=== PATIENT | female | born 1980 | race Caucasian/White ===

== ENCOUNTER 2016-11-17 17:39 | Emergency (ER) | payer MEDICARE, MEDICAID ==
--- NOTE | 2016-11-17 18:08 | Emergency Department Record ---
History of Present Illness - General Chief complaint: ENT Stated complaint: EAR AND NECK PAIN Time Seen by Provider: 11/17/16 18:02 Source: Patient Mode of Arrival: Ambulatory Limitations: No limitations - History of Present Illness Initial comments: 36 yo female presents to ED with a CC of right ear pain for the past 2-3 days ( wears hearing aid in that ear) and worsening of her "disc herniation" in arcelia neck that has been present for approximately 3 months. Patient reports that she has been taking Tylenol at home for her pain symptoms, but not helping much. Patient denies fevers, chills, UE weakness, or drainage from her right ear. MD complaint: Ear pain, Other (neck pain) Onset/Timin -: Month(s) Location: R ear Severity scale (1-10): 10 Quality: Sharp Consistency: Constant Improves with: None Worsens with: Movement - Related Data Home Medications Medication Instructions Recorded Confirmed Last Taken Clonazepam [Klonopin] 0.5 mg PO ASDIR 10/21/16 11/17/16 11/17/16 Paliperidone Palmitate [Invega 117 mg IM ASDIR 10/21/16 11/17/16 11/17/16 Sustenna] Temazepam [Restoril] 30 mg PO QHS 10/21/16 11/17/16 11/17/16 Previous Rx's Medication Instructions Recorded Naproxen [Naprosyn] 500 mg PO Q12H #20 tab. 10/21/16 Diazepam [Valium] 5 mg PO Q8H #15 tab 11/17/16 Ibuprofen [Motrin 600Mg] 600 mg PO Q6H #30 tablet 11/17/16 Allergies Allergy/AdvReac Type Severity Reaction Status Date / Time Penicillins Allergy HIVES Verified 11/17/16 17:51 Travel Screening - Travel/Exposure Within Last 30 Days Have you traveled within the last 30 days?: No - Travel/Exposure Within Last Year Have you traveled outside the [place] in the last year?: No - Additonal Travel Details Have you been exposed to anyone with a communicable illness?: No - Travel Symptoms Symptom Screening: None Review of Systems Constitutional: Denies: Chills, Fever, Malaise, Night sweats Eyes: Denies: Eye discharge, Eye pain ENT: Reports: Ear pain. Denies: Congestion, Epistaxis Respiratory: Denies: Cough, Dyspnea Cardiovascular: Denies: Chest pain, Dyspnea on exertion Endocrine: Denies: Fatigue, Heat or cold intolerance Gastrointestinal: Denies: Abdominal pain, Nausea, Vomiting Musculoskeletal: Reports: Neck pain. Denies: Arthralgia, Back pain, Gout Skin: Denies: Bruising, Change in color, Change in hair/nails Neurological: Denies: Abnormal gait, Confusion, Headache, Paresthesias, Tingling , Weakness Psychiatric: Denies: Anxiety Hematological/Lymphatic: Denies: Anemia, Blood Clots Past Medical History - SOCIAL HISTORY Smoking Status: Never smoker Alcohol Use: None Drug Use: None - RESPIRATORY Hx Respiratory Disorders: No - CARDIOVASCULAR Hx Cardio Disorders: No - NEURO Hx Neuro Disorders: No - GI Hx GI Disorders: No - Hx Genitourinary Disorders: No - ENDOCRINE Hx Endocrine Disorders: No - MUSCULOSKELETAL Hx Musculoskeletal Disorders: No - PSYCH Hx Psych Problems: Yes Hx Anxiety: Yes Hx Depression: Yes Comment:: schitzophrenia - HEMATOLOGY/ONCOLOGY Hx Hematology/Oncology Disorders: No Family Medical History Any Significant Family History?: No Physical Exam - General General Appearance: Alert, Oriented x3, Cooperative, No acute distress Limitations: No limitations - Head Head exam: Atraumatic, Normocephalic, Normal inspection Head exam detail: negative: Abrasion, Contusion, Robertson's sign, General tenderness, Hematoma, Laceration - Eye Eye exam: Normal appearance. negative: Conjunctival injection, Periorbital swelling, Periorbital tenderness, Scleral icterus - ENT Ear exam: Other (TMs appear clear bilaterally). negative: Auricular hematoma, Auricular trauma, External canal tenderness Nasal Exam: negative: Active bleeding, Discharge, Dried blood, Foreign body, Sinus tenderness Mouth exam: negative: Drooling, Laceration, Muffled voice, Tongue elevation - Neck Neck exam: Normal inspection, Full ROM. negative: Meningismus, Tenderness - Respiratory Respiratory exam: Normal lung sounds bilaterally. negative: Respiratory distress, Rhonchi, Stridor, Wheezes - Cardiovascular Cardiovascular Exam: Normal rhythm, Normal heart sounds, Tachycardia, Other ( mild resting tachycardia) - GI/Abdominal GI/Abdominal exam: Soft. negative: Rebound, Rigid, Tenderness - Rectal Rectal exam: Deferred - exam: Deferred - Extremities Extremities exam: Normal inspection. negative: Calf tenderness, Pedal edema, Tenderness - Back Back exam: Reports: Normal inspection. Denies: CVA tenderness (R), CVA tenderness (L) - Neurological Neurological exam: Alert, Normal gait, Oriented X3 - Psychiatric Psychiatric exam: Normal affect, Normal mood - Skin Skin exam: Normal color. negative: Abrasion Type of lesion: negative: abrasion Course Vital Signs 11/17/16 11/17/16 17:46 17:55 Temperature 98.2 F 98.2 F Pulse Rate [ 120 H Pulse Ox Probe] Respiratory 16 16 Rate Blood Pressure 126/86 [Left Arm] Pulse Ox 96 96 - Reevaluation(s) Reevaluation #1: 11/17/16 18:06 Patient's TM fails to demonstrate evidence for infection, no lymphadenopathy is present, and patient denies dental pain. 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 Will treat her symptoms with a combination of Motrin 600 mg and Valium as needed with instructions for follow-up. Disposition Disposition: Discharge Clinical Impression: Neck pain, Right ear pain Disposition: Home, Self-Care Condition: (2) Stable Instructions: Cervical Spine Strain (ED) Additional Instructions: Return to ED if your symptoms worsen or if you have any concerns. Motrin and Valium as directed. Follow-up with your family doctor in 3-5 days for re-evaluation of your symptoms. Prescriptions: Ibuprofen [Motrin 600Mg] 600 mg PO Q6H #30 tablet Diazepam [Valium] 5 mg PO Q8H #15 tab Forms: Patient Portal Access Time of Disposition: 18:10
== END 2016-11-17 18:24 | disposition home or self-care (01) ==
LOC: ER 17:39
DX: M54.2 Cervicalgia (principal); H92.03 Otalgia, bilateral
CPT/HCPCS: 99282

== ENCOUNTER 2016-12-21 09:32 | Emergency (ER) | payer MEDICARE, MEDICAID ==
--- NOTE | 2016-12-21 09:58 | Emergency Department Record ---
History of Present Illness - General Chief complaint: Nausea, Vomiting, Diarrhea Stated complaint: DIARRHEA Time Seen by Provider: 12/21/16 09:52 Source: Patient Mode of Arrival: Ambulatory Limitations: No limitations - History of Present Illness Initial comments: 36 yo female presents to ED with a CC of loose stools for the past 2-3 days, report 5-6 stools/day. Patient denies fevers, chills, or recent illness, and patient denies abdominal pain symptoms. Patient reports history of C. Diff 2-3 months ago. MD complaint: Diarrhea Onset/Timin -: Days(s) Description of Vomiting: Foul-smelling, Watery Location: Diffuse Radiation: None Severity: Mild Severity scale (1-10): 1 Quality: Aching Consistency: Constant Improves with: None Worsens with: None Context: Recent surgery/procedure - Related Data Home Medications Medication Instructions Recorded Confirmed Last Taken Clonazepam [Klonopin] 0.5 mg PO ASDIR 10/21/16 12/21/16 1 Day Ago Paliperidone Palmitate [Invega 117 mg IM ASDIR 10/21/16 12/21/16 1 Day Ago Sustenna] Temazepam [Restoril] 30 mg PO QHS 10/21/16 12/21/16 1 Day Ago Famotidine [Pepcid] 20 mg PO BID 12/21/16 12/21/16 1 Day Ago Mag Hydrox/Al Hydrox/Simeth 15 ml PO QID 12/21/16 12/21/16 1 Day Ago [Maalox Maximum Strength Susp] Melatonin 10 mg PO QHS 12/21/16 12/21/16 1 Day Ago Allergies Allergy/AdvReac Type Severity Reaction Status Date / Time Penicillins Allergy HIVES Verified 12/21/16 09:42 Travel Screening - Travel/Exposure Within Last 30 Days Have you traveled within the last 30 days?: No - Travel/Exposure Within Last Year Have you traveled outside the [place] in the last year?: No - Additonal Travel Details Have you been exposed to anyone with a communicable illness?: No - Travel Symptoms Symptom Screening: None Review of Systems Constitutional: Denies: Chills, Fever, Malaise, Night sweats Eyes: Denies: Eye discharge, Eye pain ENT: Denies: Congestion, Ear pain, Epistaxis Respiratory: Denies: Cough, Dyspnea Cardiovascular: Denies: Chest pain, Dyspnea on exertion Endocrine: Denies: Fatigue, Heat or cold intolerance Gastrointestinal: Reports: Diarrhea. Denies: Abdominal pain, Constipation, Nausea, Vomiting Genitourinary: Denies: Dysuria, Frequency, Hematuria, Incontinence Musculoskeletal: Denies: Arthralgia, Back pain, Gout, Joint swelling Skin: Denies: Bruising, Change in color Neurological: Denies: Abnormal gait, Confusion, Headache, Seizure Psychiatric: Denies: Anxiety Hematological/Lymphatic: Denies: Anemia, Blood Clots Past Medical History - SOCIAL HISTORY Smoking Status: Never smoker Alcohol Use: None Drug Use: None - RESPIRATORY Hx Respiratory Disorders: No - CARDIOVASCULAR Hx Cardio Disorders: No - NEURO Hx Neuro Disorders: No - GI Hx Reflux: Yes Comment:: arranging for scopes - Hx Genitourinary Disorders: No - ENDOCRINE Hx Endocrine Disorders: No - MUSCULOSKELETAL Hx Musculoskeletal Disorders: No - PSYCH Hx Psych Problems: Yes Hx Anxiety: Yes Hx Depression: Yes Comment:: schitzophrenia - HEMATOLOGY/ONCOLOGY Hx Hematology/Oncology Disorders: No Family Medical History Any Significant Family History?: Yes Physical Exam - General General Appearance: Alert, Oriented x3, Cooperative, No acute distress Limitations: No limitations - Head Head exam: Atraumatic, Normocephalic, Normal inspection Head exam detail: negative: Abrasion, Contusion, Robertson's sign, General tenderness, Hematoma, Laceration - Eye Eye exam: Normal appearance. negative: Conjunctival injection, Periorbital swelling, Periorbital tenderness, Scleral icterus - ENT Ear exam: negative: Auricular hematoma, Auricular trauma Nasal Exam: negative: Active bleeding, Discharge, Dried blood, Foreign body Mouth exam: negative: Drooling, Laceration, Muffled voice, Tongue elevation - Neck Neck exam: Normal inspection. negative: Meningismus, Tenderness - Respiratory Respiratory exam: Normal lung sounds bilaterally. negative: Rales, Respiratory distress, Rhonchi, Stridor - Cardiovascular Cardiovascular Exam: Regular rate, Normal rhythm, Normal heart sounds - GI/Abdominal GI/Abdominal exam: Soft. negative: Rebound, Rigid, Tenderness - Rectal Rectal exam: Deferred - exam: Deferred - Extremities Extremities exam: Normal inspection. negative: Calf tenderness, Pedal edema, Tenderness - Back Back exam: Reports: Normal inspection. Denies: CVA tenderness (R), CVA tenderness (L) - Neurological Neurological exam: Alert, Normal gait, Oriented X3 - Psychiatric Psychiatric exam: Normal affect, Normal mood - Skin Skin exam: Normal color. negative: Abrasion Type of lesion: negative: abrasion Course Vital Signs 12/21/16 09:35 Temperature 99.1 F Pulse Rate 91 H Respiratory 12 Rate Blood Pressure 136/111 Pulse Ox 97 - Reevaluation(s) Reevaluation #1: 12/21/16 11:18 Patient is unable to provide a stool sample after 90 minutes in the ED. Outpatient script given of labs, will return with a sample when ready. Disposition Disposition: Discharge Clinical Impression: Diarrhea Qualifiers: Diarrhea type: unspecified type Qualified Code(s): R19.7 - Diarrhea, unspecified Disposition: Home, Self-Care Condition: (2) Stable Instructions: Acute Diarrhea (ED) Additional Instructions: Return to ED if your symptoms worsen or if you have any concerns. Drink plenty of fluids/rest. Follow-up with your family doctor in 3-5 days as directed. Forms: Patient Portal Access Time of Disposition: 11:19
== END 2016-12-21 11:23 | disposition home or self-care (01) ==
LOC: ER 09:32
DX: R19.7 Diarrhea, unspecified (principal); R11.2 Nausea with vomiting, unspecified
CPT/HCPCS: 99282

== ENCOUNTER 2017-01-20 21:26 | Emergency (ER) | payer MEDICARE, MEDICAID | END 2017-01-20 22:43 | disposition left against medical advice (07) | LOC: ER 21:26 | DX: Z53.20 Procedure and treatment not carried out because of patient's decision for unspecified reasons (principal) ==

== ENCOUNTER 2017-02-21 19:22 | Emergency (ER) | payer MEDICARE, MEDICAID ==
--- NOTE | 2017-02-21 20:15 | Emergency Department Record ---
History of Present Illness - General Chief complaint: Lower Extremity Pain Stated complaint: LEG PAIN (BOTH) Time Seen by Provider: 02/21/17 20:09 Source: Patient Mode of Arrival: Ambulatory Limitations: No limitations - History of Present Illness Initial comments: 36 yo female presents to ED with a CC of bilaterally thigh pain and difficulty sleeping for several days. Patient denies any recent injury to the legs, denies any recent increased or strenuous physical activity with her legs. Patient reports that she has not taken anything at home for her symptoms. MD Complaint: Extremity pain Onset/Timin -: Days(s) Location: Bilateral History of Same: Yes Radiation: Distal Quality: Aching Consistency: Constant Improves with: Nothing Worsens with: Nothing - Related Data Home Medications Medication Instructions Recorded Confirmed Last Taken Clonazepam [Klonopin] 0.5 mg PO ASDIR 10/21/16 02/21/17 1 Day Ago Paliperidone Palmitate [Invega 6 mg PO ASDIR 10/21/16 02/21/17 1 Day Ago Sustenna] Temazepam [Restoril] 15 mg PO QHS 10/21/16 02/21/17 1 Day Ago Famotidine [Pepcid] 20 mg PO BID 12/21/16 02/21/17 1 Day Ago Previous Rx's Medication Instructions Recorded Ibuprofen [Motrin 600Mg] 600 mg PO Q6H #30 tablet 02/21/17 Melatonin 3 mg PO QHS #30 tablet 02/21/17 Allergies Allergy/AdvReac Type Severity Reaction Status Date / Time Penicillins Allergy HIVES Verified 12/21/16 09:42 risperidone [From Risperdal] AdvReac RASH Verified 02/21/17 19:55 Travel Screening - Travel/Exposure Within Last 30 Days Have you traveled within the last 30 days?: No - Travel Symptoms Symptom Screening: None Review of Systems Constitutional: Denies: Chills, Fever, Malaise, Night sweats Eyes: Denies: Eye discharge, Eye pain ENT: Denies: Ear pain, Epistaxis Respiratory: Denies: Cough, Dyspnea Cardiovascular: Denies: Chest pain, Dyspnea on exertion Endocrine: Denies: Fatigue, Heat or cold intolerance Gastrointestinal: Denies: Abdominal pain, Nausea, Vomiting Genitourinary: Denies: Hematuria, Incontinence, Retention Musculoskeletal: Reports: Myalgia. Denies: Arthralgia, Back pain, Gout, Joint swelling Skin: Denies: Bruising, Change in color Neurological: Denies: Abnormal gait, Confusion, Headache, Tingling, Tremors Psychiatric: Denies: Anxiety Hematological/Lymphatic: Denies: Anemia, Blood Clots Past Medical History - SOCIAL HISTORY Smoking Status: Never smoker Alcohol Use: None Drug Use: None - RESPIRATORY Hx Respiratory Disorders: No - CARDIOVASCULAR Hx Cardio Disorders: No - NEURO Hx Neuro Disorders: No - GI Hx GI Disorders: Yes Hx Reflux: Yes - Hx Genitourinary Disorders: No - ENDOCRINE Hx Endocrine Disorders: No - MUSCULOSKELETAL Hx Musculoskeletal Disorders: No - PSYCH Hx Psych Problems: Yes Hx Anxiety: Yes Hx Depression: Yes Comment:: schitzophrenia - HEMATOLOGY/ONCOLOGY Hx Hematology/Oncology Disorders: No Family Medical History Any Significant Family History?: No Family Hx Comment (NOT TO BE USED IN PLACE OF ITEMS BELOW): denies Physical Exam - General General Appearance: Alert, Oriented x3, Cooperative, No acute distress Limitations: No limitations - Head Head exam: Atraumatic, Normocephalic, Normal inspection Head exam detail: negative: Abrasion, Contusion, Robertson's sign, General tenderness, Hematoma, Laceration - Eye Eye exam: Normal appearance. negative: Conjunctival injection, Periorbital swelling, Periorbital tenderness, Scleral icterus - ENT Ear exam: negative: Auricular hematoma, Auricular trauma Nasal Exam: negative: Active bleeding, Discharge, Dried blood, Foreign body, Sinus tenderness Mouth exam: negative: Drooling, Laceration, Muffled voice, Tongue elevation - Neck Neck exam: Normal inspection. negative: Meningismus, Tenderness - Respiratory Respiratory exam: Normal lung sounds bilaterally. negative: Respiratory distress, Rhonchi, Stridor, Wheezes - Cardiovascular Cardiovascular Exam: Normal rhythm, Normal heart sounds, Tachycardia (low 100's on examination) - GI/Abdominal GI/Abdominal exam: Soft. negative: Rebound, Rigid, Tenderness - Rectal Rectal exam: Deferred - exam: Deferred - Extremities Extremities exam: Normal inspection, Other (Patient's anterior thighs are non- tender on examination, no rashes present, ambulates normally in room as well). negative: Calf tenderness, Pedal edema, Tenderness - Back Back exam: Denies: CVA tenderness (R), CVA tenderness (L) - Neurological Neurological exam: Alert, Normal gait, Oriented X3 - Psychiatric Psychiatric exam: Normal affect, Normal mood - Skin Skin exam: Normal color. negative: Abrasion Type of lesion: negative: abrasion Course Vital Signs 02/21/17 19:58 Temperature 97.7 F Pulse Rate 112 H Respiratory 20 Rate Blood Pressure 139/107 Pulse Ox 97 - Reevaluation(s) Reevaluation #1: 02/21/17 20:20 Patient denies any recent injury or strenuous activity, rhabdomyolysis does not seem likely. Patient was instructed to take Motrin 600 for her muscle aches and Melatonin as needed for her difficulty sleeping with instructions to follow- up with her PCP in 3-5 days. Patient verbalizes understanding of all instructions and appears stable for discharge at this time. Disposition Disposition: Discharge Clinical Impression: Myalgia Disposition: Home, Self-Care Condition: (2) Stable Instructions: Musculoskeletal Pain (ED) Additional Instructions: Return to ED if your symptoms worsen or if you have any concerns. Motrin 600 mg and Melatonin as directed. Follow-up with your family doctor in 3-5 days as directed. Prescriptions: Melatonin 3 mg PO QHS #30 tablet Ibuprofen [Motrin 600Mg] 600 mg PO Q6H #30 tablet Forms: Patient Portal Access Time of Disposition: 20:14
== END 2017-02-21 20:23 | disposition home or self-care (01) ==
LOC: ER 19:22
DX: M79.1 Myalgia (principal); M79.652 Pain in left thigh; M79.651 Pain in right thigh
CPT/HCPCS: 99282

== ENCOUNTER 2017-06-28 05:29 | Emergency (ER) | payer MEDICARE, MEDICAID ==
[2017-06-28] MEDS ORDERED: IBUPROFEN 600 MG TABLET PO ONE (05:43)
--- NOTE | 2017-06-28 05:49 | Emergency Department Record ---
History of Present Illness - General Chief complaint: ENT Time Seen by Provider: 06/28/17 05:42 Source: Patient Mode of Arrival: Ambulatory Limitations: No limitations - History of Present Illness Initial comments: 37 yo female presents to ED with a CC of ear pain that began this morning. Patient denies drainage from the ear, but does report decreased hearing in both ears. Patient denies injury or trauma to the ears. Patient denies dental pain or fevers. Patient reports that she has been taking tylenol which has not helped her symptoms much at home. Patient denies health problems at her baseline. MD complaint: Ear pain Onset/Timin -: Days(s) Location: R ear, L ear Severity: Moderate Severity scale (1-10): 9 Quality: Aching Consistency: Constant Improves with: None Worsens with: None - Related Data Home Medications Medication Instructions Recorded Confirmed Last Taken Cyclobenzaprine HCl [Flexeril] 5 mg PO QHS 06/28/17 06/28/17 Unknown Allergies Allergy/AdvReac Type Severity Reaction Status Date / Time Penicillins Allergy HIVES Verified 12/21/16 09:42 risperidone [From Risperdal] AdvReac RASH Verified 02/21/17 19:55 Travel Screening - Travel/Exposure Within Last 30 Days Have you traveled within the last 30 days?: No - Travel/Exposure Within Last Year Have you traveled outside the [place] in the last year?: No - Additonal Travel Details Have you been exposed to anyone with a communicable illness?: No - Travel Symptoms Symptom Screening: None Review of Systems Constitutional: Denies: Chills, Fever, Malaise, Night sweats Eyes: Denies: Eye discharge, Eye pain ENT: Reports: Ear pain. Denies: Congestion, Dental pain, Epistaxis Respiratory: Denies: Cough, Dyspnea Cardiovascular: Denies: Chest pain, Dyspnea on exertion Endocrine: Denies: Fatigue Gastrointestinal: Denies: Abdominal pain, Nausea, Vomiting Genitourinary: Denies: Incontinence, Retention Musculoskeletal: Denies: Arthralgia, Back pain, Gout, Joint swelling Skin: Denies: Bruising, Change in color Neurological: Denies: Abnormal gait, Confusion, Headache, Seizure Psychiatric: Denies: Anxiety Hematological/Lymphatic: Denies: Anemia, Blood Clots Past Medical History - SOCIAL HISTORY Smoking Status: Never smoker Alcohol Use: None Drug Use: None - RESPIRATORY Hx Respiratory Disorders: No - CARDIOVASCULAR Hx Cardio Disorders: No - NEURO Hx Neuro Disorders: No - GI Hx GI Disorders: Yes Hx Reflux: Yes Comment:: arranging for scopes - Hx Genitourinary Disorders: No - ENDOCRINE Hx Endocrine Disorders: No - MUSCULOSKELETAL Hx Musculoskeletal Disorders: No - PSYCH Hx Psych Problems: Yes Hx Anxiety: Yes Hx Depression: Yes Comment:: schitzophrenia - HEMATOLOGY/ONCOLOGY Hx Hematology/Oncology Disorders: No Family Medical History Any Significant Family History?: No Family Hx Comment (NOT TO BE USED IN PLACE OF ITEMS BELOW): denies Physical Exam - General General Appearance: Alert, Oriented x3, Cooperative, No acute distress Limitations: No limitations - Head Head exam: Atraumatic, Normocephalic, Normal inspection Head exam detail: negative: Abrasion, Contusion, Robertson's sign, General tenderness, Hematoma, Laceration - Eye Eye exam: Normal appearance. negative: Conjunctival injection, Periorbital swelling, Periorbital tenderness, Scleral icterus - ENT Ear exam: Other (Normal TMs, normal EAC). negative: Auricular hematoma, Auricular trauma Nasal Exam: negative: Active bleeding, Discharge, Dried blood, Foreign body Mouth exam: negative: Drooling, Laceration, Muffled voice, Tongue elevation Teeth exam: Other (All teeth have been removed) - Neck Neck exam: Normal inspection. negative: Meningismus - Respiratory Respiratory exam: Normal lung sounds bilaterally. negative: Rales, Respiratory distress, Rhonchi, Stridor - Cardiovascular Cardiovascular Exam: Regular rate, Normal rhythm, Normal heart sounds - GI/Abdominal GI/Abdominal exam: Soft. negative: Rebound, Rigid, Tenderness - Rectal Rectal exam: Deferred - exam: Deferred - Extremities Extremities exam: Normal inspection. negative: Pedal edema, Tenderness - Back Back exam: Denies: CVA tenderness (R), CVA tenderness (L) - Neurological Neurological exam: Alert, Normal gait, Oriented X3 - Psychiatric Psychiatric exam: Normal affect, Normal mood - Skin Skin exam: Normal color. negative: Abrasion Type of lesion: negative: abrasion Course Vital Signs 06/28/17 05:30 Temperature 98.9 F Pulse Rate 110 H Respiratory 20 Rate Blood Pressure 142/108 Pulse Ox 97 - Reevaluation(s) Reevaluation #1: 06/28/17 05:47 TMs and external auditory canal's appear normal on examination, and the patient' s teeth have all been previously removed. There is no obvious source for ear infection on examination, will administer Motrin for her ear pain symptoms with instructions to follow-up with her PCP in 3-5 days as days. Disposition Disposition: Discharge Clinical Impression: Ear pain Qualifiers: Laterality: bilateral Qualified Code(s): H92.03 - Otalgia, bilateral Disposition: Home, Self-Care Condition: (2) Stable Instructions: Earache (ED) Additional Instructions: Return to ED if your symptoms worsen or if you have any concerns. Ibuprofen as needed for ear pain symptoms. Follow-up with your family doctor in 3-5 days as directed. Forms: Patient Portal Access Time of Disposition: 05:51 Quality - Quality Measures Quality Measures: N/A - Blood Pressure Screening Does Patient Have Any of the Following: No Blood Pressure Classification: Hypertensive Reading Systolic Measurement: 142 Diastolic Measurement: 108 Screening for High Blood Pressure: < First Hypertensive BP, F/U Documented > [ [id number]] First Hypertensive Follow-up Interventions: Referral to alternative/primary care provider.
== END 2017-06-28 06:03 | disposition home or self-care (01) ==
LOC: ER 05:29
DX: H92.03 Otalgia, bilateral (principal)
CPT/HCPCS: 99282